=== PATIENT | female | born 1945 | race Caucasian/White ===

== ENCOUNTER 2017-07-12 14:55 | Outpatient (CLI) | payer MEDICARE ==
--- NOTE | 2017-07-12 18:33 | CT ---
CT ABDOMEN AND PELVIS WITH CONTRAST: 07/12/17 HISTORY: R10.84 - generalized abdominal pain. Hysterectomy. Stomach pain and nausea for two weeks. COMPARISON: None. FINDINGS: Mild atelectasis right lower lobe. No pericardial effusion. Moderate atherosclerotic disease throughout the aorta. The spleen, pancreas, liver are unremarkable. Adrenal glands are unremarkable. The gallbladder is unremarkable. No intrahepatic or extrahepatic ductal dilatation. No adenopathy. No dilated loops of large or small bowel. There is outward rotation of the left kidne y relative to the right. There is mild hyperenhancement of the urothelium bilaterally. No calculus is appreciated. There is likely some focal fatty infiltration of hepatic segment IVb of the gallbladder fossa. Urina ry bladder is unremarkable. IMPRESSION: 1. No acute abnormality in the abdomen or pelvis. 2. Mild hyperenhancement of the urothelium bilaterally may represent a normal variant in this p atient or retrograde infectious process. Recommend correlation with urinalysis. 3. 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 4. Likely focal fatty infiltrate hepatic segment IVb of the liver near the falciform ligament. 5. 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 POS: [facility]
== END 2017-07-12 14:56 | disposition home or self-care (01) ==
LOC: SCSCT 14:55
PROVIDERS: ATTEND Family Medicine
DX: R10.84 Generalized abdominal pain (principal); Q63.2 Ectopic kidney; Z98.1 Arthrodesis status; E03.9 Hypothyroidism, unspecified; I10 Essential (primary) hypertension
CPT/HCPCS: 36415; 74177; 80053; 82150; 83690; 84439; 84443; 85025

== ENCOUNTER 2017-07-15 19:12 | Emergency (ER) | payer MEDICARE ==
[2017-07-15] MEDS ORDERED: methylPREDNISolone Sod Succ/PF 125 MG/2 ML VIAL ONE (19:59)
[2017-07-15] MEDS ORDERED: Water For Inject, Bacteriostat 30 ML ONE (20:08)
--- NOTE | 2017-07-15 20:20 | RAD ---
THREE VIEWS LUMBAR SPINE: History: Back pain. FINDINGS: AP, lateral, and coned down views of the lumbar spine obtained. Images demonstrate grade I anterolisthesis of L5 on S1. There is disc desiccation and endplate scler otic changes at the L4-5 intervertebral endplates. There is some disc space height loss also seen at L3-4. IMPRESSION: Grade I anterolisthesis of L4 on L5 and L5 on S1 with multilevel lower and mid lumbar degenerative d isc changes seen. POS: [facility]
== END 2017-07-15 20:31 | disposition home or self-care (01) ==
LOC: ERS 19:12
DX: M54.16 Radiculopathy, lumbar region (principal); E03.9 Hypothyroidism, unspecified; I10 Essential (primary) hypertension; Z79.899 Other long term (current) drug therapy
CPT/HCPCS: 72100; 96372; J2930

== ENCOUNTER 2017-07-24 14:21 | Outpatient (CLI) | payer MEDICARE ==
--- NOTE | 2017-07-24 20:06 | MRI ---
EXAM: MRI LUMBAR SPINE WITHOUT CONTRAST 07/24/17 HISTORY: Acute bilateral low back pain with right sided sciatica. COMPARISON: None. CORRELATION: Lumbar spine three views, 07/15/17. TECHNIQUE: Lumbar spine MRI is performed without intravenous gadolinium administration. Multisequential, multip lanar imaging is performed. FINDINGS: The nomenclature of the current lumbar spine MRI was based upon the recent radiograph. Given the fin dings on the recent radiograph, there is 7.4 mm of anterolisthesis of L4 upon L5 and 7.2 mm of anter olisthesis of L5 upon S1. There is appropriate T1 marrow signal intensity of the lumbar vertebrae. V ertebral body height is maintained. No fracture. No significant STIR hyperintensity to suggest verte bral body edema. No evidence of ligamentous injury. The conus medullaris terminates at the mid L1 level. There is appropriate signal intensity of the visualized solid organs. Symmetric signal intensity of the psoas muscles. L1-L2: Adequate disc hydration. No significant central canal stenosis or foraminal narrowing,. L2-L3: Adequate disc hydration. No significant central canal stenosis. Neural foramina are patent. L3-L4: Disc desiccation with mild loss of disc space height. Minimal posterior element hypertrophy. No significant central canal stenosis. Right neural foramen is patent. Minimal left foraminal narrow ing. L4-L5: Disc desiccation with mild loss of disc space height. Generalized disc bulge, ligamentum flav um thickening and facet hypertrophy result in moderate central canal stenosis. Mild bilateral forami nal narrowing. L5-S1: Minimal loss of disc space height. There is disc desiccation. There is generalized disc bulge without significant central canal stenosis. Right neural foramen is patent. Moderate left foraminal narrowing predominantly due to disc material. S1-S2: No high grade central canal stenosis or high grade foraminal narrowing. IMPRESSION: 1. Degenerative changes of the lumbar spine as above. There is significant left foraminal narro wing at the L5-S1 level. 2. Grade I anterolisthesis of L4 upon L5 and L5 upon S1. POS: OFF
== END 2017-07-24 14:22 | disposition home or self-care (01) ==
LOC: SCSMRI 14:21
PROVIDERS: ATTEND Family Medicine
DX: M54.41 Lumbago with sciatica, right side (principal); M47.817 Spondylosis without myelopathy or radiculopathy, lumbosacral region; M43.17 Spondylolisthesis, lumbosacral region
CPT/HCPCS: 72148

== ENCOUNTER 2019-02-06 13:52 | Observation (INO) | payer MEDICARE ==
[2019-02-06 14:42] LABS: #Basophils 0.1 thou/uL (0.0-0.2); #Eosinphils 0.3 thou/uL (0.0-0.7); #Lymphocytes 1.4 thou/uL (1.20-3.40); #Monocytes 0.5 thou/uL (0.11-0.59); %Basophils 1.2 % (0.0-1.0); %Eosinophils 3.4 % (0.0-10.0); %Monocytes 5.2 % (0.0-10.0); %Neutrophils 77.3 % (42.0-75.0); Hemoglobin 13.6 g/dL (12.0-16.0); Mean Corpuscular HGB CONC 32.8 g/dL (32.0-36.0); Mean Corpuscular Hemoglobin 31.9 pg (27.0-31.0); Mean Corpuscular Volume 97.4 fL (78.0-98.0); Mean Platelet Volume 6.9 fL (7.4-10.4); Platelet Count 239 thou/uL (130-400); RBC Distribution Width 12.5 % (11.5-14.5); Red Blood Cell (RBC) Count 4.27 mill/uL (4.20-5.40); White Blood Cell (WBC) Count 10.3 thou/uL (4.8-10.8)
[2019-02-06 14:57] LABS: ALT (SGPT) 15 U/L (8-55); AST (SGOT) 23 U/L (5-34); Albumin 4.1 g/dL (3.4-4.8); Alkaline Phosphatase 115 U/L (40-150); Anion Gap 12 mmol/L (10-20); BUN (Urea Nitrogen) 17 mg/dL (9.8-20.1); Bilirubin, Total 0.5 mg/dL (0.2-1.2); Calc. Creatinine Clearance 0 mL/min (70-130); Calcium 9.7 mg/dL (7.8-10.44); Carbon Dioxide 25 mmol/L (23-31); Chloride 110 mmol/L (98-107); Estimated GFR-MDRD 69; Globulin 2.8 g/dL (2.4-3.5); Glucose 81 mg/dL (83-110); Potassium 3.8 mmol/L (3.5-5.1); Protein, Total 6.9 g/dL (6.0-8.3); Sodium 143 mmol/L (136-145)
[2019-02-06] MEDS ORDERED: methylPREDNISolone Sod Succ/PF 125 MG/2 ML VIAL ONE (14:59)
[2019-02-06] MEDS ORDERED: Water For Inject, Bacteriostat 30 ML ONE (15:00)
--- NOTE | 2019-02-06 15:12 | RAD ---
CHEST 2 VIEWS: HISTORY: Shortness of breath. COMPARISON: 10/13/2018. FINDINGS: Left ICD. Heart size within normal limits. Minimal patchy parenchymal changes in what appears to be the anterior aspect of the right lower lobe. Biapical pleural thickening. Bilateral hyperinflation and stable chronic changes. No significant pleural effusion. IMPRESSION: Minimal new patchy parenchymal changes in the right lower lobe raising concern for pneumonia. Stable hyperinflation and chronic lung changes. POS: C
[2019-02-06] MEDS ORDERED: Sodium Chloride 0.9% 100 ML ONE (16:21)
[2019-02-06] MEDS ORDERED: cefTRIAXone\\ROCEPHIN 2 GM VIAL ONE (16:21)
[2019-02-06] MEDS ORDERED: Azithromycin 500 MG VIAL ONE (17:05)
[2019-02-06] MEDS ORDERED: NS 0.9% w/ 20 MEQ KCL 1,000 ML ONE (17:05)
[2019-02-06] MEDS ORDERED: Acetaminophen 500 MG TAB ONE (17:12)
[2019-02-06 19:21] VITALS: BMI 19.3
[2019-02-06] MEDS ORDERED: PROVENTIL INHALER 6.7 G (200 INHALATIONS) INH PRN (21:14)
[2019-02-06] MEDS ORDERED: Albuterol Sulfate 2.5 mg/3 ml Neb NEB PRN (21:14)
[2019-02-06] MEDS ORDERED: Sodium Chloride 0.9% 1,000 ML IV SCH (21:30)
[2019-02-06] MEDS ORDERED: Donepezil HCl 10 MG TAB PO SCH (22:15)
[2019-02-06] MEDS ORDERED: Ondansetron ODT 4 MG TAB PO PRN (22:18)
[2019-02-06] MEDS ORDERED: Ondansetron PF 4 MG/2 ML Vial IVP PRN (22:18)
[2019-02-06] MEDS ORDERED: hydrALAZINE 20 MG/ML VIAL SLOW IVP PRN (22:20)
[2019-02-06] MEDS: Acetaminophen 325 MG TAB PO PRN (22:29)
[2019-02-06] MEDS ORDERED: Sodium Chloride 0.45% 1,000 ML IV SCH (22:30)
[2019-02-06] MEDS ORDERED: Benzonatate 100 MG CAP PO PRN (22:39)
[2019-02-06] MEDS: Cepastat Lozenges 1 LOZ PO PRN (23:55)
[2019-02-06] MEDS: methylPREDNISolone Sod Succ 40 MG VIAL IVP SCH (23:56)
[2019-02-07] MEDS ORDERED: diphenhydrAMINE 25 MG CAP PO SCH (00:15)
--- NOTE | 2019-02-07 00:45 | HP ---
PRIMARY CARE PHYSICIAN: NEVAEH Yin CHIEF COMPLAINT: Shortness of breath and cough. HISTORY OF PRESENT ILLNESS: Ms. Cruz is a 73-year-old female with a past medical history of hypertension, hypothyroidism, asthma, and COPD, who had presented to [facility] earlier today due to an increased shortness of breath and cough over the last several days. She states that symptoms started at the start of the week and had been progressing. She states that she saw her PCP yesterday. She states that she was treated with a nebulizer in the office and she was sent home with a cough medicine and oral antibiotic, doxycycline. She states that she took 2 doses of the oral doxycycline. She states that when she woke up this morning, she had felt worse. Therefore, she had taken herself to the emergency department for further evaluation. She had denied any fever, chills, any chest pain, palpitations, abdominal pain, nausea, vomiting, however, does report some shortness of breath, worse with activity. She also reports a pretty significant wheeze. She was seen at [facility] ER. Upon arrival, her labs indicated a normal white count of 10.3. However, her lactic acid was found to be 2.3. Troponin was normal and less than 0.010. Chest x-ray was performed and showed signs of right lower lobe pneumonia. She was treated with IV Solu-Medrol x1 of 125 mg, DuoNeb nebulizer treatment, 2 g IV ceftriaxone, and 500 mg of IV azithromycin. She was given IV normal saline 1500 mL and a gram of Tylenol. She was transferred to [facility] for further management of her condition. Upon arrival, the patient stated that she felt much better; however, it was determined that the patient be monitored overnight, to be placed on symptomatic therapy, and monitored on telemetry. REVIEW OF SYSTEMS: All other systems reviewed and found to be negative unless mentioned in HPI. PAST MEDICAL HISTORY: Hypertension, hypothyroidism, COPD/asthma. PAST SURGICAL HISTORY: Hysterectomy and tubal ligation. PSYCHIATRIC HISTORY: None. SOCIAL HISTORY: Denies alcohol, tobacco, or illicit drug use. KNOWN ALLERGIES: Codeine, Levaquin, lisinopril, and Celebrex. CURRENT HOME MEDICATIONS: 1. Doxycycline 100 mg. 2. Albuterol sulfate 2.5 mg nebulizer q.6 hours as needed for shortness of breath. 3. Albuterol sulfate 2 puff inhalation q.4 hours as needed for shortness of breath or wheezing. 4. Benzonatate 100 mg p.o. b.i.d. p.r.n. cough. 5. Aricept 10 mg p.o. at bedtime. 6. Levothyroxine 75 mcg p.o. daily. 7. Losartan 100 mg p.o. daily. 8. Memantine 5 mg p.o. at bedtime. PHYSICAL EXAMINATION: VITAL SIGNS: BP 180/84, pulse 70, respirations 22, temperature 97.6 degrees Fahrenheit, O2 saturations 99% on 2 L of oxygen via nasal cannula. GENERAL: The patient is awake, alert, and oriented x3. She is currently lying comfortably in bed and appears to be in no acute distress at this time. She is stable on 2 L via nasal cannula. HEENT: Atraumatic, normocephalic. Pupils are round and reactive to light. Extraocular muscles intact. Moist mucous membranes noted. NECK: Soft and supple. No JVD. Trachea midline. CARDIOVASCULAR: Positive S1 and S2. Regular rate and rhythm. No murmur auscultated. RESPIRATORY: Bilateral expiratory wheezes noted throughout lung burton, right worse than left. ABDOMEN: Soft and nontender. Bowel sounds present. MUSCULOSKELETAL: Strength 5+ bilaterally upper and lower extremities. Moves all extremities equal. No edema noted. NEUROLOGIC: Cranial nerves II through XII grossly intact. No focal deficits noted. Speech intact and normal. Gait not assessed. SKIN: Warm, dry, and intact. No rashes. No ulceration noted. PSYCHIATRIC: Good mood and affect. LABORATORY DATA: WBC 10.3, RBC 4.27, hemoglobin 13.6, platelets 239. Sodium 143, potassium 3.8, carbon dioxide 25, anion gap 12, BUN 17, creatinine 0.82, estimated GFR 69, glucose 81. Lactic acid 2.3, 3.0. Alkaline phosphatase 115, AST 23, ALT 15. Troponin less than 0.010. DIAGNOSTIC IMAGING: Two-view chest x-ray showed minimal new patchy parenchymal changes in the right lower lobe, raising concern for pneumonia with stable hyperinflation and chronic lung changes. ASSESSMENT AND PLAN: 1. Pneumonia, the patient will be treated with IV azithromycin and ceftriaxone at this time. Blood cultures were obtained and awaiting results. 2. Acute respiratory hypoxic failure, likely secondary to above. We will place the patient on her home regimen for underlying asthma/chronic obstructive pulmonary disease along with IV Solu-Medrol. She will be managed with O2 via nasal cannula, which will be weaned as tolerated. A D-dimer is ordered to rule out pulmonary embolism and currently pending at this time. Sputum cultures also ordered and pending. 3. Lactic acidosis, likely secondary to underlying infection. Continue on IV fluids of half-normal saline. Recheck lactic acid in the morning along with other morning labs. Continue underlying pneumonia with IV antibiotics and await cultures. 4. History of asthma/chronic obstructive pulmonary disease. Continue on home regimen along with symptomatic treatment. Wean oxygen as tolerated. 5. History of hypothyroidism. Continue on patient's home dose of Synthroid and check TSH. 6. Deep venous thrombosis and gastrointestinal prophylaxis. 7. Code status, DNAR. 8. The patient's surrogate decision maker is Pari Salas. DISPOSITION: Pending further workup and clinical findings. Job ID: [id number]
[2019-02-07] MEDS: traMADol HCl 50 MG TAB PO PRN (01:44)
[2019-02-07 05:15] LABS: #Lymphocytes 0.6 thou/uL (1.20-3.40); #Monocytes 0.1 thou/uL (0.11-0.59); #Neutrophils 7.7 thou/uL (1.40-6.50); %Basophils 0.1 % (0.0-1.0); %Eosinophils 0.1 % (0.0-10.0); %Lymphocytes 7.4 % (21.0-51.0); %Monocytes 1.3 % (0.0-10.0); Hemoglobin 12.7 g/dL (12.0-16.0); Lactic Acid 2.8 mmol/L (0.5-2.2); Mean Corpuscular HGB CONC 33.3 g/dL (32.0-36.0); Mean Corpuscular Hemoglobin 32.6 pg (27.0-31.0); Mean Corpuscular Volume 98.1 fL (78.0-98.0); Mean Platelet Volume 7.3 fL (7.4-10.4); Platelet Count 226 thou/uL (130-400); RBC Distribution Width 11.9 % (11.5-14.5); White Blood Cell (WBC) Count 8.5 thou/uL (4.8-10.8)
[2019-02-07 05:16] LABS: Anion Gap 13 mmol/L (10-20); BUN (Urea Nitrogen) 12 mg/dL (9.8-20.1); Calc. Creatinine Clearance 64 mL/min (70-130); Calcium 9.3 mg/dL (7.8-10.44); Carbon Dioxide 20 mmol/L (23-31); Chloride 112 mmol/L (98-107); Estimated GFR-MDRD 85; Glucose 130 mg/dL (83-110); Potassium 3.8 mmol/L (3.5-5.1); Sodium 141 mmol/L (136-145)
[2019-02-07] MEDS: Levothyroxine Sodium 75 MCG TAB PO SCH (06:00)
[2019-02-07] MEDS: Acetaminophen 325 MG TAB PO PRN ×3 (06:00→23:49)
[2019-02-07] MEDS: methylPREDNISolone Sod Succ 40 MG VIAL IVP SCH ×4 (06:01→23:49)
--- NOTE | 2019-02-07 08:53 | CT ---
CT angiogram thorax with contrast: (CTA pulmonary angiogram) HISTORY: 73-year-old female with dyspnea and elevated d-dimer TECHNIQUE: IV injection of iodinated contrast. Scan acquisition timing attempted to coincide with iodinated contrast bolus reaching maximal density in pulmonary arteries. 3-D MIP reconstructions. FINDINGS: There are patchy, heterogeneously distributed groundglass densities in both lungs, especially in the bilateral upper lobes. These are nonspecific, but one possibility is pulmonary interstitial edema. Irregularly-shaped focal airspace density in the lateral aspect of right lower lobe abutting the late ral pleural surface. This could be atelectasis or less likely pneumonia. No pleural effusion or pneumothorax. No thoracic aortic dissection or aneurysm. No pulmonary embolus identified. IMPRESSION: 1. No evidence of pulmonary thromboembolism. 2. Groundglass densities bilaterally. One possibility is pulmonary interstitial edema. 3. Focal parenchymal density in right lower lobe. This could represent atelectasis, less likely pneum onia.
[2019-02-07] MEDS: Enoxaparin Sodium 40 MG/0.4 ML SYRINGE SC SCH (10:19)
[2019-02-07] MEDS: Famotidine 20 MG TAB PO SCH ×2 (10:21→20:33)
[2019-02-07] MEDS: Losartan 25 MG TAB PO SCH (10:21)
[2019-02-07] MEDS: guaiFENesin/DM ER PO SCH ×2 (10:25→20:32)
[2019-02-07] MEDS ORDERED: ISOVUE-370 76%-LOCM 1 ML ONE (11:09)
[2019-02-07] MEDS: Sodium Chloride 0.45% 1,000 ML IV SCH ×2 (13:03→20:31)
[2019-02-07] MEDS: Azithromycin 500 MG in Sodium Chloride 0.9% 250 ML 250 ML IVPB SCH (16:19)
[2019-02-07] MEDS: Cepastat Lozenges 1 LOZ PO PRN (16:19)
[2019-02-07] MEDS: cefTRIAXone\\ROCEPHIN 2 GM in Sodium Chloride 0.9% 100 ML IVPB SCH (18:20)
[2019-02-07] MEDS: Donepezil HCl 10 MG TAB PO SCH (20:33)
[2019-02-08] MEDS: traMADol HCl 50 MG TAB PO PRN (01:15)
[2019-02-08] MEDS: Cepastat Lozenges 1 LOZ PO PRN (01:21)
[2019-02-08 05:05] LABS: #Lymphocytes 0.5 thou/uL (1.20-3.40); #Monocytes 0.5 thou/uL (0.11-0.59); #Neutrophils 11.1 thou/uL (1.40-6.50); %Eosinophils 0.2 % (0.0-10.0); %Lymphocytes 3.7 % (21.0-51.0); %Monocytes 3.9 % (0.0-10.0); %Neutrophils 92.2 % (42.0-75.0); Hemoglobin 12.1 g/dL (12.0-16.0); Mean Corpuscular HGB CONC 32.3 g/dL (32.0-36.0); Mean Corpuscular Hemoglobin 32.4 pg (27.0-31.0); Mean Platelet Volume 7.5 fL (7.4-10.4); Platelet Count 224 thou/uL (130-400); Red Blood Cell (RBC) Count 3.73 mill/uL (4.20-5.40); White Blood Cell (WBC) Count 12.1 thou/uL (4.8-10.8)
[2019-02-08 05:24] LABS: Lactic Acid 3.7 mmol/L (0.5-2.2)
[2019-02-08 05:31] LABS: Anion Gap 14 mmol/L (10-20); BUN (Urea Nitrogen) 15 mg/dL (9.8-20.1); Calc. Creatinine Clearance 67 mL/min (70-130); Calcium 9.2 mg/dL (7.8-10.44); Carbon Dioxide 20 mmol/L (23-31); Chloride 110 mmol/L (98-107); Estimated GFR-MDRD 90; Glucose 126 mg/dL (83-110); Potassium 3.3 mmol/L (3.5-5.1); Sodium 141 mmol/L (136-145)
[2019-02-08] MEDS: Levothyroxine Sodium 75 MCG TAB PO SCH (06:04)
[2019-02-08] MEDS: methylPREDNISolone Sod Succ 40 MG VIAL IVP SCH (06:04)
[2019-02-08] MEDS: Enoxaparin Sodium 40 MG/0.4 ML SYRINGE SC SCH (08:29)
[2019-02-08] MEDS: Losartan 25 MG TAB PO SCH (08:30)
[2019-02-08] MEDS: Famotidine 20 MG TAB PO SCH ×2 (08:30→20:45)
[2019-02-08] MEDS: guaiFENesin/DM ER PO SCH ×2 (08:30→20:45)
[2019-02-08] MEDS: predniSONE 20 MG TAB PO SCH (08:31)
--- NOTE | 2019-02-08 09:13 | PRG ---
DATE OF SERVICE: 02/08/2019 SUBJECTIVE: The patient feels like she is doing little bit better today. Her breathing has dramatically improved over 3 days ago. She states the breathing treatments sometimes help her, sometimes they do not. She also admits that she is having a lot of family and psychosocial stressors as well. OBJECTIVE: VITAL SIGNS: Temperature 97.9, pulse 63, respirations 16, O2 saturation 95% on room air, and blood pressure 162/77. GENERAL APPEARANCE: Age-appropriate female. She is in no distress. Awake, alert, oriented, pleasant, cooperative, breathing comfortably without supplemental oxygen currently. HEENT: Reveals some facial erythema and somewhat of a malar distribution. She has some dry mouth with cheilitis. HEART: Regular rate and rhythm with no murmurs, gallops, or rubs. LUNGS: Have very minimal fine crackles without significant wheezes noted. Fairly good air exchange. ABDOMEN: Benign. LABORATORY DATA: White count 12.1, hemoglobin 12.1, and platelets 224. Sodium 141, potassium 3.3, chloride 110, CO2 of 20, and lactic acid is 3.7. CK 259. BNP 356. IMAGING DATA: CT of the chest from yesterday revealed ground-glass densities bilaterally, possible pulmonary interstitial edema. There is a focal parenchymal density in the right lower lobe representing atelectasis or less likely pneumonia. IMPRESSION AND PLAN: 1. Acute hypoxic respiratory failure, which appears to be improved. The patient is off oxygen and saturating comfortably. 2. Dyspnea. Etiologies include possible reactive airway disease, pulmonary edema, or pneumonia. The patient also has significant component of psychosocial stressors, which may be adding to her symptom complex. The patient has been on steroids, antibiotics, nebulizer treatments, and is improving. Her slightly elevated BNP is being investigated further with echocardiogram today. She is symptomatically improved. Oxygen levels are adequate without oxygen. We will get her ambulating today. Await the results of the echocardiogram and consider discharge later today with followup with Pulmonology as that was the recommendation from her PCP as well. 3. Xerostomia with cheilitis. The patient also has some slight erythema of the face and more of a malar distribution. However, this may be related to the steroids. We will check some basic autoimmune serologies as well. Job ID: [id number]
[2019-02-08] MEDS: Acetaminophen 325 MG TAB PO PRN (13:00)
[2019-02-08 14:29] LABS: Lactic Acid 3.4 mmol/L (0.5-2.2)
[2019-02-08 14:32] LABS: ALT (SGPT) 12 U/L (8-55); AST (SGOT) 18 U/L (5-34); Albumin 3.8 g/dL (3.4-4.8); Alkaline Phosphatase 88 U/L (40-150); Bilirubin, Direct 0.1 mg/dL (0.1-0.3); Bilirubin, Total 0.3 mg/dL (0.2-1.2); Lipase 26 U/L (8-78); Protein, Total 6.1 g/dL (6.0-8.3)
--- NOTE | 2019-02-08 15:42 | PDOC.EVN ---
Event Note - Event Note Event Note: Patient with diffuse abdominal pain states came on suddenly. Has eaten today without any n/v. Moved her bowels this morning, per daughter it was small but no straining. No fevers/chills or sweats. Patient states pain is 10/10, throughout entire abdomen but worse in LLQ. Made worse with movement. On exam patient is diffusely tender, with significant guarding in the LLQ. Visibly uncomfortable. No distention. CT A/P requested w/o contrast. LFTs done earlier showed no abnormalitis. Lipase was normal. Lactic acid 3.4. BP normal, systolic 164. Not tachy. Normal temp. ADDENDUM: CT A/P has showed left rectus sheath abdominal wall hematoma. Measuring 7x9cm. Enoxaparin discontinued. Reviewed with Dr. Weeks who evaluated/examined the patient. We contacted general surgery and spoke to Dr. Peraza who advised monitoring. No need for surgical intervention. Serial H/Hs and she will be evaluated by General Surgery later today or tomorrow morning. Will obtain type & screen as well. Continue to monitor pain, size and H/Hs as well as vitals. For pain Tylenol and Tramadol as needed. To avoid increased pain with bearing down, stool softeners recommended (Colace and Miralax scheduled, hold if diarrhea develops).
[2019-02-08] MEDS ORDERED: Morphine 2 MG/ML SYRINGE SLOW IVP SCH (15:45)
[2019-02-08] MEDS: Sodium Chloride 0.45% 1,000 ML IV SCH (15:55)
[2019-02-08] MEDS: cefTRIAXone\\ROCEPHIN 2 GM in Sodium Chloride 0.9% 100 ML IVPB SCH (16:34)
--- NOTE | 2019-02-08 16:34 | PDOC.PN ---
- Subjective Encounter Start Date: 02/07/19 Encounter Start Time: 10:29 Subjective: Patient states she continues with a cough, occasionally productive for -: yellow sputum. Complaining of a sore throat. Denies any fever/chills/sweats -: States her breathing feels better than when she first came in. Denies any chest pain. No headaches or dizziness. Tolerating food without difficulty. According to nurses and daughters, she does have some underlying memory problems and is on medications for dementia. - Objective Resuscitation Status - Order Detail: 02/06/19 22:18 Resuscitation Status Routine Co-Sign Provider: Resuscitation Status: DNAR: NO Resuscitation Discussed with: Patient Vital Signs & Weight: Vital Signs (12 hours) Temp Pulse Resp BP Pulse Ox 02/08/19 15:30 98.3 F 61 16 164/76 H 94 L 02/08/19 15:22 77 18 95 02/08/19 11:30 98.1 F 66 16 138/65 96 02/08/19 11:13 62 18 95 02/08/19 07:39 95 02/08/19 07:37 63 16 95 02/08/19 07:13 98.1 F 75 16 174/81 H 95 Weight Weight 119 lb 14.4 oz I&O: 02/07/19 02/08/19 02/09/19 06:59 06:59 06:59 Intake Total 957 2554 360 Output Total 1425 3175 500 [facility] -468 -621 -140 Result Diagrams: 02/08/19 04:45 02/08/19 04:45 Phys Exam - Physical Examination Constitutional: NAD HEENT: PERRLA, moist MMs, sclera anicteric Neck: supple, full ROM Respiratory: wheezing present throughout all lung burton Cardiovascular: RRR No chest wall tendernses Gastrointestinal: soft, non-tender, no distention, positive bowel sounds Musculoskeletal: no edema, pulses present Neurological: normal sensation, moves all 4 limbs Psychiatric: normal affect, A&O x 3 Skin: no rash Dx/Plan (1) Shortness of breath Code(s): R06.02 - SHORTNESS OF BREATH Status: Acute Plan: D-Dimer elevated. Renal function improved with fluids overnight. VQ scan cancelled. CTA Chest ordered. (2) COPD exacerbation Code(s): J44.1 - CHRONIC OBSTRUCTIVE PULMONARY DISEASE W (ACUTE) EXACERBATION Status: Acute Plan: Patient states she hasnt gotten nebs since last night. Changed duo nebs to q4hrs scheduled. Chest xray showed RLL patchy changes, consistent with pneumonia. Continue antibiotics. (3) Hypertension Code(s): I10 - ESSENTIAL (PRIMARY) HYPERTENSION Status: Chronic (4) Hypothyroidism Code(s): E03.9 - HYPOTHYROIDISM, UNSPECIFIED Status: Chronic - Plan cont current plan of care, continue antibiotics, incentive spirometry, DVT proph w/SCDs * .
[2019-02-08] MEDS: Azithromycin 500 MG in Sodium Chloride 0.9% 250 ML 250 ML IVPB SCH (17:27)
--- NOTE | 2019-02-08 18:16 | CT ---
CT ABDOMEN AND PELVIS WITHOUT CONTRAST: Technique: Multiple axial tomograms were obtained through the abdomen and pelvis without IV enhanceme nt. Indications: Abdominal pain. Left flank pain. Comparison: CT abdomen, 07-12-17 FINDINGS: Images through the lung bases reveal linear atelectasis in the right lung base. Liver, spleen, and pancreas unremarkable for an unenhanced study. Gallbladder is slightly distended with some increased density within the gallbladder lumen. Consider gallbladder ultrasound. Adrenal glands are normal. There is mild rotation of the left kidney which is a stable finding. There is no evidence of hydronep hrosis. No urinary tract calculus. Urinary bladder is unremarkable. The appendix appears normal. There is gas throughout the colon. Aorta is normal caliber. No free fluid in the abdomen or pelvis. There is an abnormal mass involving the left abdominal wall which appears to involve the left abdomin al rectus muscle. This mass measures 7 cm width in the axial plane x 4 cm AP dimension. The mixed den sities within this mass would suggest an acute abdominal wall hematoma. IMPRESSION: 1. Heterogeneous mass involving the left abdominal wall which appears to involve the left abdominal r ectus muscle. Acute abdominal wall hematoma would be suspected. Is patient on blood thinners? 2. Otherwise, no acute intraabdominal process. POS: [facility]
--- NOTE | 2019-02-08 18:39 | PDOC.EVN ---
Event Note - Event Note Event Note: Called by Angelina/DEBI regarding pt developed an abdominal wall hematoma today on the left side. Pt was c/o increasing abd pain, had received lovenox today. Pt has present bowel sounds, ttp along the left side. CT result reviewed. Angelina called Dr. Peraza - follow serial h/h, and Gen Surgery will consult tomorrow. Lovenox d/c, pt is not on any aspirin or nsaids, will type/screen and monitor closely. Discussed wiith patient the plan of care - add stool softener, has tramadol and tylenol for pain, consent obtained verbally for blood - RN to obtain written consent IF blood is needed. Pt aware that we will discuss need for blood with her - we are preparing the consent in advance, in case there is a precipitous change in hb. No questions or further needs at end of discussion with patient/her daughters - they demonstrate understanding of adverse reaction to DVT prophylaxis with lovenox, monitoring that will be performed tonight, management of pain, and further complications that may occur.
[2019-02-08] MEDS ORDERED: Docusate 100 MG CAP PO PRN (18:55)
[2019-02-08] MEDS ORDERED: Polyethylene Glycol 3350 17 GM Packet PO SCH (19:00)
[2019-02-08 19:08] LABS: Hemoglobin 12.7 g/dL (12.0-16.0)
[2019-02-08] MEDS: Donepezil HCl 10 MG TAB PO SCH (20:45)
[2019-02-08] MEDS ORDERED: Docusate 100 MG CAP PO SCH (21:00)
[2019-02-08 22:42] LABS: Hemoglobin 11.4 g/dL (12.0-16.0)
[2019-02-09] MEDS: Levothyroxine Sodium 75 MCG TAB PO SCH (02:40)
[2019-02-09 07:54] LABS: Hemoglobin 12.1 g/dL (12.0-16.0)
[2019-02-09] MEDS: Losartan 25 MG TAB PO SCH (08:45)
[2019-02-09] MEDS: predniSONE 20 MG TAB PO SCH (08:45)
[2019-02-09] MEDS: guaiFENesin/DM ER PO SCH (08:45)
[2019-02-09] MEDS: Famotidine 20 MG TAB PO SCH (08:45)
[2019-02-09] MEDS ORDERED: Polyethylene Glycol 3350 17 GM Packet PO SCH (09:00)
--- NOTE | 2019-02-09 12:51 | PDOC.EVN ---
Event Note - Event Note Event Note: Patient with rectus hematoma on CT. Hemodynamically stable. Off lovenox now. No further treatment needed.
[2019-02-09] MEDS: Sodium Chloride 0.45% 1,000 ML IV SCH (13:05)
[2019-02-09] MEDS: Acetaminophen 325 MG TAB PO PRN (15:35)
[2019-02-09 16:13] VITALS: BP 130/69; TEMP 98.2
--- NOTE | 2019-02-10 02:34 | DIS ---
DATE OF ADMISSION: 02/06/2019 DATE OF DISCHARGE: 02/09/2019 CONDITION AT DISCHARGE: Stable. PRESENTING COMPLAINT: Shortness of breath. DISCHARGE DIAGNOSES: 1. Shortness of breath secondary to community-acquired pneumonia, which was also exacerbated by acute asthma. 2. Acute respiratory hypoxic failure, resolved. HOSPITAL COURSE: The patient is a pleasant 73-year-old female with past medical history significant for chronic asthma, who presented to the hospital with complaints of cough and shortness of breath. She was treated for community-acquired pneumonia and has steadily improved since her hospitalization. Today, she has no complaints and states that she feels like she is back to her baseline. DISCHARGE MEDICATIONS: New medications that the patient will be discharged on along with her home medications include: 1. Omnicef 300 mg q.12 b.i.d. for the next 3 days along with azithromycin 250 mg one tablet p.o. daily. 2. Medrol Dosepak to take as directed. DISCHARGE INSTRUCTIONS: The patient will continue her nebulizer treatments at home, as well as Medrol Dosepak and antibiotics. The patient has been instructed to follow up with Pulmonary as an outpatient given her ground-glass densities found bilaterally on her CT scan report. FOLLOWUP CARE: With Pulmonology as outlined above. Also with her primary care physician. If she has any worsening of symptoms, she will return back to the ER for further evaluation. The care of this patient was discussed with Dr. Stone, who agrees with discharge as above. Job ID: [id number]
[2019-02-10 15:03] LABS: ANA Symphony (Qualitative) Negative (Negative); ANA Symphony (Quantitative) Less than 0.1 Ratio (< 0.7 Negative); dsDNA IgG Antibody 0.9 IU/mL (<10 Negative)
== END 2019-02-09 17:55 | disposition home or self-care (01) ==
LOC: SCSER 13:52 → 2SW 18:36
PROVIDERS: ADMIT Internal Medicine; ATTEND Internal Medicine
DX: J18.9 Pneumonia, unspecified organism (principal); J96.01 Acute respiratory failure with hypoxia; J44.1 Chronic obstructive pulmonary disease with (acute) exacerbation; K11.7 Disturbances of salivary secretion; K13.0 Diseases of lips; S30.1XXA Contusion of abdominal wall, initial encounter; I10 Essential (primary) hypertension; E03.9 Hypothyroidism, unspecified; E87.2 Acidosis; Z66 Do not resuscitate; Z79.899 Other long term (current) drug therapy; Z88.1 Allergy status to other antibiotic agents; Z88.5 Allergy status to narcotic agent; Z88.6 Allergy status to analgesic agent; Z88.8 Allergy status to other drugs, medicaments and biological substances
CPT/HCPCS: 71046; 71275; 74176; 80048 ×2; 80053; 80076; 82550; 83605 ×3; 83690; 83880; 84484; 85014 ×2; 85018 ×2; 85025 ×3; 85379; 85652; 86038; 86140; 86225; 86850; 86900; 86901; 87040; 87633; 93005; 93306; 94640 ×4; 96361 ×4; 96365; 96366; 96367 ×2; 96372 ×2; 96375 ×2; 96376 ×3; 97139 ×3; 99285; G0378 ×3; 36415; J0456; J0696; J1650; J2270; J2920; J2930; J3480; J3490; J7050; J7512; J7611; J7620; Q0163; Q9966

== ENCOUNTER 2019-11-24 11:19 | Outpatient (CLI) | payer MEDICARE ==
--- NOTE | 2019-11-24 11:43 | RAD ---
RADIOGRAPH CHEST 2 VIEW: DATE: 11/24/2019 HISTORY: 74-year-old female with bronchitis, cough, dyspnea, and chest congestion FINDINGS: There is no airspace density, pulmonary edema, pleural effusion, or pneumothorax. Cardiac size near u pper limits of normal. Left subclavian dual lead pacemaker. IMPRESSION: 1. No acute pulmonary findings. 2. Pacemaker.
== END 2019-11-24 11:20 | disposition home or self-care (01) ==
LOC: SCSRAD 11:19
PROVIDERS: ATTEND Nurse Practitioner Family
DX: J40 Bronchitis, not specified as acute or chronic (principal); Z95.0 Presence of cardiac pacemaker
CPT/HCPCS: 71046

== ENCOUNTER 2020-01-21 13:16 | Outpatient (CLI) | payer MEDICARE ==
--- NOTE | 2020-01-26 09:26 | MMO ---
Bilateral MAMMO Bilat Screen [facility]. CLINICAL HISTORY: Patient is 74 years old and is seen for screening. The patient has the following family history of breast cancer: mother, at age 65. VIEWS: The views performed were: bilateral craniocaudal with tomosynthesis and bilateral mediolateral oblique with tomosynthesis. FILMS COMPARED: The present examination has been compared to prior imaging studies performed at [facility] on 12/04/2017, and at [facility] on 06/15/2013 and 06/17/2014. This study has been interpreted with the assistance of computer-aided detection. MAMMOGRAM FINDINGS: There are scattered fibroglandular densities. Benign calcifications are noted bilaterally. There are no suspicious masses, suspicious calcifications, or new areas of architectural distortion. IMPRESSION: THERE IS NO MAMMOGRAPHIC EVIDENCE OF MALIGNANCY. A ROUTINE FOLLOW-UP MAMMOGRAM IN 1 YEAR IS RECOMMENDED. THE RESULTS OF THIS EXAM WERE SENT TO THE PATIENT. ACR BI-RADS Category 2 - Benign finding MAMMOGRAPHY NOTE: 1. A negative mammogram report should not delay a biopsy if a dominant of clinically suspicious mass is present. 2. Approximately 10% to 15% of breast cancers are not detected by mammography. 3. Adenosis and dense breasts may obscure an underlying neoplasm. Reported by: ADRIEL HOUSTON MD Electonically Signed: [id number]
== END 2020-01-21 13:17 | disposition home or self-care (01) ==
LOC: BICMAMMO 13:16
PROVIDERS: ATTEND Family Medicine
DX: Z12.31 Encounter for screening mammogram for malignant neoplasm of breast (principal); Z80.3 Family history of malignant neoplasm of breast
CPT/HCPCS: 77063; 77067

== ENCOUNTER 2021-07-16 18:42 | Emergency (ER) | payer MEDICARE ==
[2021-07-16] MEDS ORDERED: methylPREDNISolone Sod Succ/PF 125 MG/2 ML VIAL ONE (20:11)
[2021-07-16] MEDS ORDERED: Acetaminophen 500 MG TAB ONE (20:27)
== END 2021-07-16 22:09 | disposition home or self-care (01) ==
LOC: ERS 18:42
DX: J45.901 Unspecified asthma with (acute) exacerbation (principal); E03.9 Hypothyroidism, unspecified; I10 Essential (primary) hypertension
CPT/HCPCS: 71045; 93005; 94640; 96374; J2930; J7620